=== PATIENT | male | born 1950 | race Caucasian/White ===

== ENCOUNTER 2019-02-03 14:42 | Emergency (ER) | payer MEDICARE, OTHER ==
[2019-02-03] MEDS: HYDROCODONE/APAP (5/325) TAB PO (15:48)
== END 2019-02-03 16:45 | disposition home or self-care (01) ==
LOC: FTE 14:42
DX: S43.015A Anterior dislocation of left humerus, initial encounter (principal); W18.39XA Other fall on same level, initial encounter; Y92.009 Unspecified place in unspecified non-institutional (private) residence as the place of occurrence of the external cause; Z96.653 Presence of artificial knee joint, bilateral
CPT/HCPCS: 29105; 73020; 73030; 99283-25